=== PATIENT | female | born 1950 | race Caucasian/White ===

== ENCOUNTER 2017-02-01 18:13 | Emergency (ER) | payer OTHER ==
[~2017-02-01] VITALS: Ht 160 cm; Wt 92.5 kg
--- NOTE | ~2017-02-01 | CR157 ---
[facility] A Service of [facility] RADIOLOGY TEXT RESULTS PATIENT: ROOSEVELT ARMENTA LOCATION: CFTX : 48 UNIT #: [id number] AGE: [address]: ANDREW BENNETT APRN SEX: F ORDER DR: [id number] [facility] [address] [place], [place] [address] [id number] E MR#: [id number] Acc #: [id number] NAME: ROOSEVELT ARMENTA : 1950 SEX: F STUDY DATE/TIME: 02/01/2017 20:25 UNIT: [facility] ROOM: STUDY DESCRIPTION: CR Humerus Min 2 View Rt Attending Physician: Andrew Bennett Aprn Ordering Physician: Andrew Bennett Aprn Primary Care Physician: Pierce Nassar Jr., M.D. MEDICAL IMAGING REPORT This report is preliminary unless electronic signature is present EXAM Right humerus, 2 views. COMPARISON 2 views of the right shoulder on the same date. INDICATION 66-year-old female with right upper arm pain after falling today. FINDINGS There is mild degenerative change in the right acromioclavicular joint. The humerus is anatomically aligned. No evidence of acute fracture. IMPRESSION No acute fracture or dislocation of the right humerus. Dictated by... René Case M.D. THIS IS AN ELECTRONICALLY VERIFIED REPORT René Case M.D. at 02/07/2017 9:32 AM BEBE/miya TD: 02/02/2017 08:44 JOB #: [id number] MEDICAL IMAGING REPORT Page 1 of 1 COPY
--- NOTE | ~2017-02-01 | CR230 ---
[facility] A Service of [facility] RADIOLOGY TEXT RESULTS PATIENT: ROOSEVELT ARMENTA LOCATION: CFTX : 48 UNIT #: [id number] AGE: [address]: ANDREW BENNETT APRN SEX: F ORDER DR: [id number] [facility] [address] [place], [place] [address] [id number] E MR#: [id number] Acc #: [id number] NAME: ROOSEVELT ARMENTA : 1950 SEX: F STUDY DATE/TIME: 02/01/2017 20:20 UNIT: [facility] ROOM: STUDY DESCRIPTION: CR Shoulder Min 2 View Rt Attending Physician: Andrew Bennett Aprn Ordering Physician: Andrew Bennett Aprn Primary Care Physician: Pierce Nassar Jr., M.D. MEDICAL IMAGING REPORT This report is preliminary unless electronic signature is present EXAM Right shoulder 3 views HISTORY Shoulder pain after a fall today. FINDINGS 3 views of the right shoulder demonstrate mild degenerative changes at the glenohumeral and acromioclavicular joints. No fracture, joint space narrowing or dislocation. 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 No acute findings. Dictated by... Spencer Abreu M.D. THIS IS AN ELECTRONICALLY VERIFIED REPORT Spencer Abreu M.D. at 02/02/2017 2:20 PM CLAUS/joseph TD: 02/02/2017 08:24 JOB #: [id number] MEDICAL IMAGING REPORT Page 1 of 1 COPY
[~2017-02-01 18:13] MED LIST: ALLEGRA PO; LODINE PO; LOTREL PO; NASONEX17 GM; [UNRECOGNIZED DRUG - OTHER]
== END 2017-02-01 22:55 | disposition home or self-care (01) ==
LOC: CFTX 18:13 → CED 18:13 → CFTX 20:13
DX: S40.011A Contusion of right shoulder, initial encounter (principal); I10 Essential (primary) hypertension; E78.5 Hyperlipidemia, unspecified; W18.30XA Fall on same level, unspecified, initial encounter; Y92.22 Religious institution as the place of occurrence of the external cause
CPT/HCPCS: 73030; 73060; 99283